=== PATIENT | male | born 1960 | race Asian ===

== ENCOUNTER 2023-10-09 08:26 | Emergency (ER) | payer BC, OTHER ==
[~2023-10-09] VITALS: Ht 177.8 cm; Wt 83.5 kg
[2023-10-09] MEDS ORDERED: FAMOTIDINE. 20 MG/2 ML VIAL IV ONE ×2 (08:45→09:05)
[2023-10-09] MEDS ORDERED: LIDOCAINE VISCUS 2% 15 ML UDC MM ONE (08:45)
[2023-10-09] MEDS ORDERED: MAG HYDROX/AL HYDROX/SIMETH 30 ML LIQUID UDC PO ONE (08:45)
[2023-10-09 09:04] LABS: BASOPHILS % (AUTO) 1.3 % (0.0-2.0); EOSINOPHILS # (AUTO) 0.2 K/uL (0.0-0.7); EOSINOPHILS % (AUTO) 4.2 % (0.0-7.0); LYMPHOCYTES # (AUTO) 1.4 K/uL (0.8-4.8); LYMPHOCYTES % (AUTO) 37.3 % (20.5-51.5); MEAN CORPUSCULAR HEMOGLOBIN 29.4 uug (23.8-33.4); MEAN CORPUSCULAR HGB CONC 33 g/dL (32.5-36.3); MEAN CORPUSCULAR VOLUME 88.2 fL (73.0-96.2); MONOCYTES # (AUTO) 0.3 K/uL (0.1-1.30); MONOCYTES % (AUTO) 6.8 % (0.0-11.0); NEUTROPHILS # (AUTO) 1.9 K/uL (1.8-8.9); NEUTROPHILS % (AUTO) 50.4 % (38.5-71.5); PLATELET COUNT (AUTO) 206 K/uL (152-348); RED CELL DISTRIBUTION WIDTH 13.8 % (12.1-16.2); WHITE BLOOD COUNT (AUTO) 3.7 K/uL (3.6-10.2)
[2023-10-09] MEDS ORDERED: MAG HYDROX/AL HYDROX/SIMETH 30 ML LIQUID UDC ONE (09:06)
[2023-10-09] MEDS ORDERED: LIDOCAINE VISCUS 2% 15 ML UDC ONE (09:06)
[2023-10-09 09:08] LABS: DIFFERENTIAL COMMENT 1
[2023-10-09 09:18] LABS: CALCIUM 8.6 mg/dL (8.5-10.1); CARBON DIOXIDE 30 mmol/L (21-32); CHLORIDE 104 mmol/L (98-107); GLUCOSE 97 mg/dL (74-106); POTASSIUM 3.6 mmol/L (3.5-5.1); SODIUM SERUM 140 mmol/L (136-145); UREA NITROGEN, BLOOD 24 mg/dL (7-18)
[2023-10-09 09:27] LABS: ALANINE AMINOTRANSFERASE 41 U/L (16-63); ALBUMIN 3.9 g/dL (3.4-5.0); ALKALINE PHOSPHATASE 112 U/L (50-136); ASPARTATE AMINOTRANSFERASE 27 U/L (15-37); BILIRUBIN,DIRECT 0.1 mg/dL (0.0-0.2); BILIRUBIN,TOTAL 0.6 mg/dL (0.2-1.0); TOTAL PROTEIN, SERUM 7.8 g/dL (6.4-8.2)
[2023-10-09 09:35] LABS: LIPASE 54 U/L (16-77)
[2023-10-09] MEDS ORDERED: IV NORMAL SALINE 1000 ML BAG IV ONE (09:45)
[2023-10-09] MEDS ORDERED: PANT40TA2 PO (09:57)
[2023-10-09 09:58] LABS: *BILIRUBIN,URIN NEGATIVE (NEGATIVE); *BLOOD, URINE NEGATIVE (NEGATIVE); *CLARITY,URINE CLEAR (CLEAR); *COLOR,URINE YELLOW (YELLOW); *KETONES,URINE NEGATIVE (NEGATIVE); *PROTEIN,URINE 1+ (NEGATIVE); *UROBILINOGEN,URINE 0.2 E.U./dl (NORMAL); LEUKOCYTE ESTERASE ,URINE NEGATIVE (NEGATIVE); NITRITE, URINE NEGATIVE (NEGATIVE); PH,URINE 7.5 (5.0-8.0); UGLUCOSE NEGATIVE (NEGATIVE)
[2023-10-09 10:13] VITALS: O2SAT 99
[2023-10-09 10:32] LABS: RBC,URINE 0-3 /HPF (0-3); WBC,URINE 0-3 /HPF (0-3)
== END 2023-10-09 10:15 | disposition home or self-care (01) ==
LOC: ER 08:26
DX: R07.9 Chest pain, unspecified (principal); R10.9 Unspecified abdominal pain
CPT/HCPCS: 36415; 71045; 83605; 83690; 84484; 85025; A4606; A4663; J3490; J7040

== ENCOUNTER 2023-10-18 10:00 | Inpatient (IN) | payer BC ==
[~2023-10-18] VITALS: Ht 177.8 cm; Wt 83.9 kg
[~2023-10-18 10:00] MED LIST: PANT40TA2 PO
[2023-10-18 11:07] LABS: BASOPHILS % (AUTO) 1.5 % (0.0-2.0); EOSINOPHILS # (AUTO) 0.1 K/uL (0.0-0.7); EOSINOPHILS % (AUTO) 3.3 % (0.0-7.0); HEMATOCRIT 42.7 % (36.7-47.1); HEMOGLOBIN 14.3 g/dL (12.5-16.3); LYMPHOCYTES % (AUTO) 35.2 % (20.5-51.5); MEAN CORPUSCULAR HEMOGLOBIN 29.4 uug (23.8-33.4); MEAN CORPUSCULAR HGB CONC 33 g/dL (32.5-36.3); MEAN CORPUSCULAR VOLUME 88.1 fL (73.0-96.2); MONOCYTES # (AUTO) 0.2 K/uL (0.1-1.30); MONOCYTES % (AUTO) 8.2 % (0.0-11.0); NEUTROPHILS # (AUTO) 1.5 K/uL (1.8-8.9); NEUTROPHILS % (AUTO) 51.8 % (38.5-71.5); PLATELET COUNT (AUTO) 179 K/uL (152-348); RED BLOOD CELL COUNT(AUTO) 4.84 MIL/uL (4.06-5.63); RED CELL DISTRIBUTION WIDTH 13.8 % (12.1-16.2)
[2023-10-18 11:25] LABS: CALCIUM 8.5 mg/dL (8.5-10.1); CARBON DIOXIDE 29 mmol/L (21-32); CHLORIDE 106 mmol/L (98-107); CREATININE 0.9 mg/dL (0.6-1.3); GLUCOSE 81 mg/dL (74-106); POTASSIUM 3.9 mmol/L (3.5-5.1); SODIUM SERUM 140 mmol/L (136-145); UREA NITROGEN, BLOOD 18 mg/dL (7-18)
[2023-10-18 11:29] LABS: DIFFERENTIAL COMMENT 1
[2023-10-18 11:47] LABS: ALANINE AMINOTRANSFERASE 24 U/L (16-63); ALBUMIN 3.4 g/dL (3.4-5.0); ALKALINE PHOSPHATASE 106 U/L (50-136); ASPARTATE AMINOTRANSFERASE 20 U/L (15-37); BILIRUBIN,DIRECT 0.1 mg/dL (0.0-0.2); BILIRUBIN,TOTAL 0.5 mg/dL (0.2-1.0); NT-PRO BNP 76 pg/mL (0-125); TOTAL PROTEIN, SERUM 6.9 g/dL (6.4-8.2)
[2023-10-18] MEDS ORDERED: ACETAMINOPHEN 325 MG TABLET PO ONE (12:30)
[2023-10-18] MEDS ORDERED: ACETAMINOPHEN ES 500 MG TABLET ONE (12:31)
[2023-10-18] MEDS ORDERED: OMEP40CA21 PO (12:33)
[2023-10-18] MEDS ORDERED: ONDANSETRON 4 MG/2 ML VIAL IV PRN (16:45)
[2023-10-18] MEDS ORDERED: HYDROCODONE/APAP 5-325MG TABLET PO PRN (16:45)
[2023-10-18] MEDS ORDERED: FUROSEMIDE 20 MG/2 ML VIAL IV ONE (16:45)
[2023-10-18] MEDS ORDERED: ACETAMINOPHEN 325 MG TABLET PO PRN (16:45)
[2023-10-18] MEDS ORDERED: ENOXAPARIN SODIUM 40 MG/0.4 ML DISP.SYRIN SQ ONE (19:22)
[2023-10-18] MEDS: ENOXAPARIN SODIUM 40 MG/0.4 ML DISP.SYRIN SQ SCH (19:25)
[2023-10-18] MEDS: DOCUSATE SODIUM 100 MG CAPSULE PO SCH (21:00)
[2023-10-18] MEDS ORDERED: DOCUSATE SODIUM 250 MG CAPSULE PO SCH (21:00)
[2023-10-19 06:47] LABS: BASOPHILS % (AUTO) 1.1 % (0.0-2.0); EOSINOPHILS # (AUTO) 0.2 K/uL (0.0-0.7); EOSINOPHILS % (AUTO) 5.5 % (0.0-7.0); HEMATOCRIT 42.4 % (36.7-47.1); HEMOGLOBIN 14.3 g/dL (12.5-16.3); LYMPHOCYTES # (AUTO) 1.7 K/uL (0.8-4.8); LYMPHOCYTES % (AUTO) 44.9 % (20.5-51.5); MEAN CORPUSCULAR HEMOGLOBIN 29.5 uug (23.8-33.4); MEAN CORPUSCULAR HGB CONC 34 g/dL (32.5-36.3); MEAN CORPUSCULAR VOLUME 87.7 fL (73.0-96.2); MONOCYTES # (AUTO) 0.3 K/uL (0.1-1.30); MONOCYTES % (AUTO) 7.9 % (0.0-11.0); NEUTROPHILS # (AUTO) 1.5 K/uL (1.8-8.9); NEUTROPHILS % (AUTO) 40.6 % (38.5-71.5); PLATELET COUNT (AUTO) 172 K/uL (152-348); RED BLOOD CELL COUNT(AUTO) 4.83 MIL/uL (4.06-5.63); RED CELL DISTRIBUTION WIDTH 13.1 % (12.1-16.2); WHITE BLOOD COUNT (AUTO) 3.7 K/uL (3.6-10.2)
[2023-10-19] MEDS: PANTOPRAZOLE SODIUM 40 MG TABLET.DR PO SCH (07:00)
[2023-10-19 07:10] LABS: DIFFERENTIAL COMMENT 1
[2023-10-19 07:22] LABS: ALBUMIN 3.3 g/dL (3.4-5.0); BILIRUBIN,TOTAL 0.7 mg/dL (0.2-1.0); CALCIUM 8.3 mg/dL (8.5-10.1); CREATININE 0.9 mg/dL (0.6-1.3); MAGNESIUM 2.2 mg/dL (1.8-2.4); POTASSIUM 3.5 mmol/L (3.5-5.1); TOTAL PROTEIN, SERUM 6.7 g/dL (6.4-8.2)
[2023-10-19 07:29] LABS: THYROID STIMULATING HORMONE 2.52 mIU/mL (0.358-3.740)
[2023-10-19] MEDS ORDERED: ASPIRIN 81 MG TAB.CHEW ONE (08:04)
[2023-10-19] MEDS ORDERED: ENOXAPARIN SODIUM 40 MG/0.4 ML DISP.SYRIN SQ ONE (08:04)
[2023-10-19] MEDS ORDERED: PANTOPRAZOLE SODIUM 40 MG TABLET.DR PO ONE (08:04)
[2023-10-19] MEDS: ASPIRIN 81 MG TAB.CHEW PO SCH (08:19)
[2023-10-19] MEDS: ENOXAPARIN SODIUM 40 MG/0.4 ML DISP.SYRIN SQ SCH (08:24)
[2023-10-19 17:15] VITALS: TEMP 97.2
[2023-10-19 20:00] VITALS: BP 107/73; TEMP 98.4; O2SAT 95
[2023-10-19] MEDS ORDERED: ATORVASTATIN 10 MG TABLET PO SCH (21:00)
[2023-10-19] MEDS: DOCUSATE SODIUM 100 MG CAPSULE PO SCH (21:09)
[2023-10-20] VITALS: BP 102/62; TEMP 97.7; O2SAT 94
[2023-10-20 05:30] VITALS: BP 95/58; TEMP 97.9; O2SAT 95
[2023-10-20] MEDS: PANTOPRAZOLE SODIUM 40 MG TABLET.DR PO SCH (06:51)
[2023-10-20] MEDS: ASPIRIN 81 MG TAB.CHEW PO SCH (08:17)
[2023-10-20] MEDS: ENOXAPARIN SODIUM 40 MG/0.4 ML DISP.SYRIN SQ SCH (08:20)
[2023-10-20] MEDS ORDERED: FUROSEMIDE 20 MG/2 ML VIAL IV SCH (09:00)
[2023-10-20 12:51] VITALS: BP 91/58; TEMP 98.2; O2SAT 96
[2023-10-20] MEDS ORDERED: SWABABLE VALVE TRANSFER SET EA MC ONE (14:17)
[2023-10-20] MEDS ORDERED: IV NORMAL SALINE 250 ML IV ONE (14:17)
[2023-10-20] MEDS ORDERED: IOHEXOL 350 100 ML INFUS..BTL ONE (14:17)
[2023-10-20] MEDS ORDERED: ATOR10TA PO (14:21)
[2023-10-20] MEDS ORDERED: ASPI81TA31 PO (14:21)
[2023-10-20 14:30] VITALS: BP_SYST 101; BP_SYST 103; BP_SYST 105; BP_DIAS 65; BP_DIAS 70; BP_DIAS 71
== END 2023-10-20 15:15 | disposition home or self-care (01) | DRG 206 ==
LOC: ER 10:00 → TRANSITION 15:29 → TELE3 10-19 16:35
PROVIDERS: ADMIT Internal Medicine; ATTEND Internal Medicine
DX: M94.0 Chondrocostal junction syndrome [Tietze] (principal); G45.9 Transient cerebral ischemic attack, unspecified; I25.10 Atherosclerotic heart disease of native coronary artery without angina pectoris; E78.5 Hyperlipidemia, unspecified; K21.9 Gastro-esophageal reflux disease without esophagitis; I44.0 Atrioventricular block, first degree; E66.9 Obesity, unspecified; Z79.82 Long term (current) use of aspirin; I50.30 Unspecified diastolic (congestive) heart failure; Z79.899 Other long term (current) drug therapy; Z68.26 Body mass index [BMI] 26.0-26.9, adult
CPT/HCPCS: 36415; 70450; 71045; 83735; 84100; 84443; 84484; 85025; 85730; 93005; 93307; 93880; A4663; A9150; G0378; J1650; J1940; Q9967

== ENCOUNTER 2024-03-01 11:31 | Emergency (ER) | payer BC ==
[~2024-03-01] VITALS: Ht 177.8 cm; Wt 83.9 kg
[~2024-03-01 11:31] MED LIST changes: +ASPI81TA31 PO; +ATOR10TA PO; +OMEP40CA21 PO; -PANT40TA2 PO
[2024-03-01 11:35] VITALS: O2SAT 98
[2024-03-01] MEDS ORDERED: diphenhydrAMINE 25 MG/10 ML UDC ONE (12:24)
[2024-03-01] MEDS ORDERED: KETOROLAC TROMETHAMINE 30 MG INJ ONE (12:24)
[2024-03-01] MEDS ORDERED: METOCLOPRAMIDE HCL 10 MG/2 ML VIAL ONE (12:24)
[2024-03-01] MEDS ORDERED: diphenhydrAMINE 50 MG/1 ML VIAL ONE (12:25)
[2024-03-01] MEDS: IV NORMAL SALINE 1000 ML BAG IV ONE (12:27)
[2024-03-01] MEDS: METOCLOPRAMIDE HCL 10 MG/2 ML VIAL IV ONE (12:27)
[2024-03-01] MEDS: diphenhydrAMINE 50 MG/1 ML VIAL IV ONE (12:27)
[2024-03-01] MEDS: KETOROLAC TROMETHAMINE 15 MG INJ IVP ONE (12:28)
[2024-03-01 12:29] LABS: BASOPHILS % (AUTO) 0.5 % (0.0-2.0); DIFFERENTIAL COMMENT 1; EOSINOPHILS % (AUTO) 0.4 % (0.0-7.0); HEMATOCRIT 42.6 % (36.7-47.1); HEMOGLOBIN 14.6 g/dL (12.5-16.3); LYMPHOCYTES # (AUTO) 0.9 K/uL (0.8-4.8); MEAN CORPUSCULAR HEMOGLOBIN 29.5 uug (23.8-33.4); MEAN CORPUSCULAR HGB CONC 34 g/dL (32.5-36.3); MEAN CORPUSCULAR VOLUME 85.8 fL (73.0-96.2); MONOCYTES # (AUTO) 0.3 K/uL (0.1-1.30); MONOCYTES % (AUTO) 4.3 % (0.0-11.0); NEUTROPHILS # (AUTO) 5.8 K/uL (1.8-8.9); NEUTROPHILS % (AUTO) 81.8 % (38.5-71.5); PLATELET COUNT (AUTO) 189 K/uL (152-348); RED BLOOD CELL COUNT(AUTO) 4.97 MIL/uL (4.06-5.63); RED CELL DISTRIBUTION WIDTH 13.7 % (12.1-16.2)
[2024-03-01 12:35] LABS: CALCIUM 8.6 mg/dL (8.5-10.1); CARBON DIOXIDE 26 mmol/L (21-32); CHLORIDE 106 mmol/L (98-107); CREATININE 1.1 mg/dL (0.6-1.3); GLUCOSE 109 mg/dL (74-106); POTASSIUM 3.7 mmol/L (3.5-5.1); SODIUM SERUM 141 mmol/L (136-145); UREA NITROGEN, BLOOD 20 mg/dL (7-18)
[2024-03-01 12:44] LABS: ALANINE AMINOTRANSFERASE 34 U/L (16-63); ALBUMIN 3.8 g/dL (3.4-5.0); ALKALINE PHOSPHATASE 115 U/L (50-136); ASPARTATE AMINOTRANSFERASE 21 U/L (15-37); BILIRUBIN,DIRECT 0.1 mg/dL (0.0-0.2); BILIRUBIN,TOTAL 0.7 mg/dL (0.2-1.0); LIPASE 49 U/L (16-77); TOTAL PROTEIN, SERUM 7.5 g/dL (6.4-8.2)
[2024-03-01 13:38] LABS: *BILIRUBIN,URIN NEGATIVE (NEGATIVE); *CLARITY,URINE CLEAR (CLEAR); *COLOR,URINE YELLOW (YELLOW); *KETONES,URINE NEGATIVE (NEGATIVE); *PROTEIN,URINE NEGATIVE (NEGATIVE); *UROBILINOGEN,URINE 0.2 E.U./dl (NORMAL); LEUKOCYTE ESTERASE ,URINE NEGATIVE (NEGATIVE); NITRITE, URINE NEGATIVE (NEGATIVE); UGLUCOSE NEGATIVE (NEGATIVE)
[2024-03-01 13:43] LABS: *BLOOD, URINE TRACE (NEGATIVE)
[2024-03-01] MEDS ORDERED: MAGNESIUM SULFATE/D5W 100 ML ONE ×2 (14:02→16:43)
[2024-03-01] MEDS: MAGNESIUM SULFATE/D5W 100 ML IV SCH (14:02)
[2024-03-01 14:22] LABS: BACTERIA,URINE NONE SEEN /HPF (NONE SEEN); RBC,URINE 0-3 /HPF (0-3); SQUAMOUS EPITHELIAL CELL,UR FEW /HPF (NONE SEEN); WBC,URINE NONE SEEN /HPF (0-3)
[2024-03-01] MEDS ORDERED: IV NORMAL SALINE 250 ML IV ONE (15:19)
[2024-03-01] MEDS ORDERED: IOHEXOL 300MG/ML 100 ML INFUS..BTL ONE (15:20)
[2024-03-01] MEDS ORDERED: SWABABLE VALVE TRANSFER SET EA MC ONE (15:20)
== END 2024-03-01 17:23 | disposition home or self-care (01) ==
LOC: ER 11:33
DX: G43.909 Migraine, unspecified, not intractable, without status migrainosus (principal); R10.13 Epigastric pain; K80.20 Calculus of gallbladder without cholecystitis without obstruction; Z79.899 Other long term (current) drug therapy
CPT/HCPCS: 99285; 96365; 70460; 96375; 76705; 96366; 96361; 80076; 80048; 81001; 83690; 85025; 84484; 36415; 93005; Q0163; J1200; J1885; J3475 ×2; J2765; Q9967; J7040; A4606; A4663